=== PATIENT | female | born 1970 | race African-American/Black ===

== ENCOUNTER 2019-11-04 14:56 | Emergency (ER) | payer SELFPAY ==
[~2019-11-04] VITALS: Ht 177.8 cm; Wt 74.8 kg
--- NOTE | 2019-11-04 15:27 | NUR ---
PT IS IN ROOM #4B. DR CRUM EVALUATED THE PT.
[2019-11-04 15:28] LABS: BASOPHILS % (AUTO) 0.4 % (0.0-2.0); EOSINOPHILS # (AUTO) 0.3 K/uL (0.0-0.7); EOSINOPHILS % (AUTO) 5.3 % (0.0-7.0); HEMATOCRIT 37.2 % (31.2-41.9); HEMOGLOBIN 12.9 g/dL (10.9-14.3); LYMPHOCYTES # (AUTO) 1.8 K/uL (20.0-40.0); LYMPHOCYTES % (AUTO) 29.4 % (20.5-51.5); MEAN CORPUSCULAR HEMOGLOBIN 31.2 uug (24.7-32.8); MEAN CORPUSCULAR HGB CONC 35 g/dL (32.3-35.6); MEAN CORPUSCULAR VOLUME 90.2 fL (75.5-95.3); MONOCYTES # (AUTO) 0.7 K/uL (2.0-10.0); MONOCYTES % (AUTO) 11.8 % (0.0-11.0); NEUTROPHILS # (AUTO) 3.2 K/uL (1.8-8.9); NEUTROPHILS % (AUTO) 53.1 % (38.5-71.5); PLATELET COUNT (AUTO) 227 K/uL (179-408); RED BLOOD CELL COUNT(AUTO) 4.13 MIL/uL (3.63-4.92); WHITE BLOOD COUNT (AUTO) 6.1 K/uL (3.8-11.8)
--- NOTE | 2019-11-04 15:32 | NUR ---
PT BROUGHT TO CT ACCOMPANIED BY TECH
[2019-11-04 15:33] LABS: CREATININE 1.1 mg/dL (0.6-1.3); POTASSIUM 4.1 mmol/L (3.5-5.1)
--- NOTE | 2019-11-04 15:41 | NUR ---
PT BACK FROM CT VIA WHEELCHAIR RA NAD O2SAT AT 100%
[2019-11-04 15:45] LABS: BILIRUBIN,DIRECT 0.1 mg/dL (0.0-0.2); BILIRUBIN,TOTAL 0.3 mg/dL (0.2-1.0); TOTAL PROTEIN, SERUM 8.2 g/dL (6.4-8.2)
--- NOTE | 2019-11-04 16:19 | NUR ---
Patient discharged to home in stable condition. Written and verbal after care instructions given. Patient verbalizes understanding of instructions. Stressed follow up or return to ER for worsening s/s. AMBULATORY W/ STABLE GAIT ALL BELONGINGS W/ PT
[2019-11-04 16:27] VITALS: BP 120/72
== END 2019-11-04 16:27 | disposition home or self-care (01) ==
LOC: ER 14:56
DX: R06.02 Shortness of breath (principal); Z87.09 Personal history of other diseases of the respiratory system; I77.819 Aortic ectasia, unspecified site; R94.31 Abnormal electrocardiogram [ECG] [EKG]; J45.909 Unspecified asthma, uncomplicated; R07.89 Other chest pain
CPT/HCPCS: 36415; 70030-TC; 71045; 71250; 85025; 93005; A4663

== ENCOUNTER 2020-06-16 20:57 | Inpatient (IN) | payer BC ==
[~2020-06-16] VITALS: Ht 157.5 cm; Wt 65.8 kg
--- NOTE | 2020-06-16 21:10 | NUR ---
Dr Rucker at bedside for MSE..
[2020-06-16 21:37] LABS: *BILIRUBIN,URIN NEGATIVE (NEGATIVE); *BLOOD, URINE 2+ (NEGATIVE); *CLARITY,URINE CLEAR (CLEAR); *COLOR,URINE YELLOW (YELLOW); *KETONES,URINE 1+ (NEGATIVE); *UROBILINOGEN,URINE 0.2 E.U./dl (NORMAL); LEUKOCYTE ESTERASE ,URINE NEGATIVE (NEGATIVE); NITRITE, URINE NEGATIVE (NEGATIVE); UGLUCOSE NEGATIVE (NEGATIVE)
[2020-06-16 21:38] LABS: BASOPHILS % (AUTO) 0.4 % (0.0-2.0); EOSINOPHILS % (AUTO) 0.7 % (0.0-7.0); HEMATOCRIT 36.5 % (31.2-41.9); HEMOGLOBIN 12.4 g/dL (10.9-14.3); LYMPHOCYTES % (AUTO) 29.3 % (20.5-51.5); MEAN CORPUSCULAR HGB CONC 34 g/dL (32.3-35.6); MONOCYTES % (AUTO) 14.8 % (0.0-11.0); NEUTROPHILS # (AUTO) 3.7 K/uL (1.8-8.9); NEUTROPHILS % (AUTO) 54.8 % (38.5-71.5); PLATELET COUNT (AUTO) 213 K/uL (179-408); RED BLOOD CELL COUNT(AUTO) 4.01 MIL/uL (3.63-4.92); WHITE BLOOD COUNT (AUTO) 6.7 K/uL (3.8-11.8)
[2020-06-16] MEDS ORDERED: HYDROMORPHONE 1 MG/1 ML DISP.SYRIN ONE (21:38)
[2020-06-16] MEDS ORDERED: ONDANSETRON 4 MG/2 ML VIAL ONE (21:38)
[2020-06-16 21:40] LABS: *URINE HCG, QUAL NEGATIVE (NEGATIVE)
[2020-06-16 21:42] LABS: CREATININE 0.8 mg/dL (0.6-1.3); POTASSIUM 3.9 mmol/L (3.5-5.1)
[2020-06-16] MEDS ORDERED: HYDROMORPHONE 1 MG/1 ML DISP.SYRIN IV ONE (21:45)
[2020-06-16] MEDS ORDERED: ONDANSETRON 4 MG/2 ML VIAL IV ONE (21:45)
[2020-06-16 21:47] LABS: BILIRUBIN,TOTAL 0.4 mg/dL (0.2-1.0); TOTAL PROTEIN, SERUM 7.5 g/dL (6.4-8.2)
--- NOTE | 2020-06-16 21:52 | NUR ---
Pelvic and Rectal exam done by Dr. Rucker, chaperoned by Isael COLLAZO.
--- NOTE | 2020-06-16 22:30 | NUR ---
Pt down to CT, consent witnessed for CT with contrast, accompanied by tech. Left in stable condition.
[2020-06-16] MEDS ORDERED: IOHEXOL 300MG/ML 100 ML INFUS..BTL ONE (22:35)
[2020-06-16] MEDS ORDERED: SWABABLE VALVE TRANSFER SET EA MC ONE (22:35)
[2020-06-16] MEDS ORDERED: IV NORMAL SALINE 250 ML IV ONE (22:35)
--- NOTE | 2020-06-16 22:57 | NUR ---
Pt is back from CT.
[2020-06-16] MEDS ORDERED: IPRA4AER IH (23:43)
[2020-06-17 00:49] LABS: BACTERIA,URINE FEW /HPF (NONE SEEN); CALCIUM OXALATE CRYSTALS,UR FEW /HPF (NONE SEEN); URINE AMORPHOUS URATE MANY /HPF; WBC,URINE 0-3 /HPF (0-3)
--- NOTE | 2020-06-17 00:52 | NUR ---
Sarita ALFARO paged for panel call.
--- NOTE | 2020-06-17 01:08 | NUR ---
Sarita [employer] NURSING DIRECTOR on the line with Dr. Rucker. Admitting Dx: Lower GI bleed. Pt. admitted to Med Surg, under care of Sarita ALFARO. Belongings List completed, all belongings with patient. Pending Covid 19 result.
[2020-06-17] MEDS ORDERED: IV NS 1000 ML 1,000 ML IV PRN (01:15)
[2020-06-17] MEDS ORDERED: IV NORMAL SALINE 1000 ML BAG IV ONE ×2 (01:15→05:00)
[2020-06-17] MEDS ORDERED: ONDANSETRON 4 MG/2 ML VIAL IV PRN (01:15)
[2020-06-17] MEDS ORDERED: Z GUARD REMEDY PASTE 57 GM TUBE TOP PRN (01:15)
[2020-06-17] MEDS ORDERED: ACETAMINOPHEN 325 MG TABLET PO PRN (01:15)
[2020-06-17] MEDS ORDERED: MAGNESIUM HYDROXIDE 30 ML LIQUID UDC PO PRN (01:15)
--- NOTE | 2020-06-17 01:30 | NUR ---
Pt has been admitted to Med/Surg at this time, pending bed availability in the hospital. Will have to move in the AM per 3rd floor charge nurse. Bed has been provided in the ED, will transfer patient in the morning.
[2020-06-17 04:04] LABS: HEMOGLOBIN 12.2 g/dL (10.9-14.3)
[2020-06-17] MEDS ORDERED: HYDROMORPHONE 1 MG/1 ML DISP.SYRIN ONE (04:36)
[2020-06-17] MEDS ORDERED: HYDROMORPHONE 1 MG/1 ML DISP.SYRIN IV STA (04:40)
--- NOTE | 2020-06-17 06:31 | NUR ---
Transferred to Room 319, warm handoff/report given to Julian COLLAZO. Pt in stable condition.
[2020-06-17 08:44] LABS: HEMATOCRIT 32.7 % (31.2-41.9); HEMOGLOBIN 11.4 g/dL (10.9-14.3)
[2020-06-17] MEDS ORDERED: PANTOPRAZOLE SODIUM IV 40 MG in IV DEXTROSE 5% 100 ML IV SCH (09:00)
[2020-06-17] MEDS: HYDROCODONE/APAP 5-325MG TABLET PO PRN ×2 (11:34→17:26)
[2020-06-17] MEDS: PANTOPRAZOLE SODIUM 40 MG VIAL IV SCH ×2 (11:39→21:58)
[2020-06-17] MEDS ORDERED: GOLYTELY 4000 ML BOTTLE PO ONE (11:45)
[2020-06-17] MEDS ORDERED: LACTULOSE 20 G/30 ML LIQUID UDC PO ONE (11:45)
[2020-06-17] MEDS ORDERED: SORBITOL 70% SOLUTION 30 ML UDC PO ONE (11:45)
[2020-06-17 11:49] VITALS: BP 133/73
--- NOTE | 2020-06-17 13:45 | NUR ---
Pt received this morning, NAD, no SOB, on RA, and reports pain to lower back r/t fall prior to admission. PRN Grayling administered per [employer] orders. Pt compliant with routine medications. Able to make needs known. Pt seen by [employer], plan of care discussed, including bowel prep for anticipated colonoscopy tomorrow, and GI consult. Pt reports continued constipation since last BM prior to hospitalization which is reported to have been tinged with bright red blood, hematuria, and abnormal bright red blood vaginal discharge also reported. No evidence of this since admission but will continue to monitor. Pt teaching provided on starting [employer] and beginning NPO status at midnight tonight. All comfort and safety needs attended to. Call light within reach. Will continue to monitor.
[2020-06-17 15:24] VITALS: BP 97/61
--- NOTE | 2020-06-17 18:58 | NUR ---
Pt assisted to bathroom for voiding x1, red tinged blood present, denies pain upon urination. Will continue to monitor and endorse to oncoming night manager.
--- NOTE | 2020-06-17 20:04 | NUR ---
received ambulating npo for the ordered procedure in am.voided freely. with questions about the procedure and needs more explanation. consent is not yet signed, Dr Huffman paged as on called. awaiting response
[2020-06-17 20:18] VITALS: BP 109/74
--- NOTE | 2020-06-17 20:28 | NUR ---
ANGELINA Membreno talked to the patient and will give orders, the consent will be signed in am at 6am.
[2020-06-17] MEDS: MORPHINE SULFATE 2 MG/1 ML DISP.SYRIN IV PRN (22:27)
[2020-06-18] MEDS: MORPHINE SULFATE 2 MG/1 ML DISP.SYRIN IV PRN ×2 (02:57→10:34)
--- NOTE | 2020-06-18 02:57 | NUR ---
patient with complaints of pain to the left lower back 9/10 morphine 1 mg ivp given for pain.slept thereafter
[2020-06-18 04:24] VITALS: BP 112/67
[2020-06-18 06:09] LABS: BASOPHILS % (AUTO) 0.5 % (0.0-2.0); EOSINOPHILS % (AUTO) 0.7 % (0.0-7.0); HEMATOCRIT 31.7 % (31.2-41.9); HEMOGLOBIN 11.2 g/dL (10.9-14.3); LYMPHOCYTES # (AUTO) 1.5 K/uL (20.0-40.0); LYMPHOCYTES % (AUTO) 26.5 % (20.5-51.5); MEAN CORPUSCULAR HEMOGLOBIN 32.5 uug (24.7-32.8); MEAN CORPUSCULAR HGB CONC 35 g/dL (32.3-35.6); MONOCYTES # (AUTO) 0.8 K/uL (2.0-10.0); MONOCYTES % (AUTO) 14.5 % (0.0-11.0); NEUTROPHILS # (AUTO) 3.3 K/uL (1.8-8.9); NEUTROPHILS % (AUTO) 57.8 % (38.5-71.5); PLATELET COUNT (AUTO) 186 K/uL (179-408); RED BLOOD CELL COUNT(AUTO) 3.45 MIL/uL (3.63-4.92); WHITE BLOOD COUNT (AUTO) 5.7 K/uL (3.8-11.8)
--- NOTE | 2020-06-18 06:18 | NUR ---
patient to the operating room per coco with the operating room nurse for EGD/colonoscopy. patient refused to sign the consent as she claims the procedure was not expolained to her, will be signed in the operating room .OR nurse is aware,
[2020-06-18 06:32] LABS: CREATININE 0.8 mg/dL (0.6-1.3); MAGNESIUM 1.9 mg/dL (1.8-2.4); POTASSIUM 4.1 mmol/L (3.5-5.1)
[2020-06-18] MEDS: PANTOPRAZOLE SODIUM 40 MG VIAL IV SCH (08:12)
[2020-06-18] MEDS ORDERED: OXYC-128 PO (10:20)
[2020-06-18 11:15] VITALS: BP 117/78
[2020-06-18] MEDS: HYDROCODONE/APAP 5-325MG TABLET PO PRN (11:36)
--- NOTE | 2020-06-18 12:37 | NUR ---
dc orders received noted and carried out,dc instruction and education given to the pt ,pt verbalized understanding all the instruction and she said she will follow up with her OB IN ONE WEEK
--- NOTE | 2020-06-18 12:41 | NUR ---
PT LEFT THE FACILITY VIA PRIVATE CAR IN STAB LE CONDITION
[2020-06-18] MEDS ORDERED: LIDOCAINE-MPF 2% 5 ML VIAL IJ ONE (12:42)
[2020-06-18] MEDS ORDERED: IV NORMAL SALINE 1000 ML BAG IV ONE (12:42)
[2020-06-18] MEDS ORDERED: PROPOFOL 200 MG/20 ML BOTTLE IV ONE (12:42)
== END 2020-06-18 12:43 | disposition home or self-care (01) | DRG 394 ==
LOC: ER 20:59 → MEDSURG3 06-17 06:13
PROVIDERS: ADMIT Nurse Practitioner Acute Care; ATTEND Nurse Practitioner Acute Care
PROC: 0DB68ZX Excision of Stomach, Via Natural or Artificial Opening Endoscopic, Diagnostic (ICD-10-PCS; principal; 2020-06-18)
PROC: 0DJD8ZZ Inspection of Lower Intestinal Tract, Via Natural or Artificial Opening Endoscopic (ICD-10-PCS; 2020-06-18)
DX: K64.8 Other hemorrhoids (principal); S32.029A Unspecified fracture of second lumbar vertebra, initial encounter for closed fracture; W18.30XA Fall on same level, unspecified, initial encounter; Y92.89 Other specified places as the place of occurrence of the external cause; R31.9 Hematuria, unspecified; D25.9 Leiomyoma of uterus, unspecified; J45.909 Unspecified asthma, uncomplicated; K59.00 Constipation, unspecified; N83.202 Unspecified ovarian cyst, left side; N93.8 Other specified abnormal uterine and vaginal bleeding
CPT/HCPCS: 36415; 71045; 76856; 83735; 84100; 84703; 85018; 85025; 85610; 88313-TC; 88342; 93005; A4217; C9113; G0378; J1170; J2270; J2405; J3490; J7030; J7050; Q9967

== ENCOUNTER 2023-11-06 15:31 | Emergency (ER) | payer BC ==
[~2023-11-06] VITALS: Ht 177.8 cm; Wt 70.3 kg
[~2023-11-06 15:31] MED LIST: IPRA4AER IH; OXYC-128 PO
[2023-11-06] MEDS ORDERED: IBUP-1955 PO (17:04)
[2023-11-06] MEDS ORDERED: CYCL10TA9 PO (17:04)
[2023-11-06 18:39] VITALS: BP 138/71; TEMP 98.2; O2SAT 97
[2023-11-07] MEDS ORDERED: LIDO30AD10 TP (18:38)
[2023-11-07] MEDS ORDERED: CARB15DR63 LEFT EAR (18:40)
== END 2023-11-06 18:40 | disposition home or self-care (01) ==
LOC: ER 15:33
DX: S63.592A Other specified sprain of left wrist, initial encounter (principal); S16.1XXA Strain of muscle, fascia and tendon at neck level, initial encounter; R51.9 Headache, unspecified; J45.909 Unspecified asthma, uncomplicated; Z79.899 Other long term (current) drug therapy; Z88.5 Allergy status to narcotic agent; Z88.1 Allergy status to other antibiotic agents; W01.0XXA Fall on same level from slipping, tripping and stumbling without subsequent striking against object, initial encounter; Y93.89 Activity, other specified; Y92.89 Other specified places as the place of occurrence of the external cause; Y99.8 Other external cause status
CPT/HCPCS: 70450; 72125; 73110; A4606; A4663